=== PATIENT | female | born 1970 | race Caucasian/White ===

== ENCOUNTER 2018-11-15 21:52 | Inpatient (IN) | payer BC, OTHER ==
--- NOTE | 2018-11-16 00:35 | ED ---
Psych HPI - General Chief Complaint: Psychiatric Symptoms Stated Complaint: [employer] supervisor order-mental health Time Seen by Provider: 11/15/18 23:30 Source: patient, family, RN notes reviewed, old records reviewed Mode of arrival: ambulatory - History of Present Illness Initial Comments: 48-year-old female presents reports from today for EPS evaluation. She is petitioned by her . Patient has been making a erratic statements and talking to God. Patient reportedly said that the world is ending and is starting to scaring her family children. Patient reports that she's had no physical complaints at this time. Patient reports that her sister and her had the petition filed. No past mental health history. - Related Data Home Medications Medication Instructions Recorded Confirmed oxyCODONE HCL 10 mg PO TID PRN 11/15/18 11/15/18 Allergies Allergy/AdvReac Type Severity Reaction Status Date / Time No Known Allergies Allergy Verified 11/15/18 23:19 Review of Systems ROS Statement: Those systems with pertinent positive or pertinent negative responses have been documented in the HPI. ROS Other: All systems not noted in ROS Statement are negative. Past Medical History Past Medical History: No Reported History History of Any Multi-Drug Resistant Organisms: None Reported Past Surgical History: Section, Cholecystectomy Past Psychological History: Anxiety, Depression Smoking Status: Current every day smoker Past Alcohol Use History: Occasional Past Drug Use History: None Reported General Exam - General Exam Comments Initial Comments: 48-year-old female. Alert and oriented. No distress. Limitations: no limitations General appearance: alert, in no apparent distress Head exam: Present: atraumatic Eye exam: Present: normal appearance, PERRL, EOMI. Absent: scleral icterus, conjunctival injection, periorbital swelling ENT exam: Present: normal exam, mucous membranes moist Neck exam: Present: normal inspection. Absent: tenderness, meningismus, lymphadenopathy Respiratory exam: Present: normal lung sounds bilaterally. Absent: respiratory distress, wheezes, rales, rhonchi, stridor Cardiovascular Exam: Present: regular rate, normal rhythm, normal heart sounds. Absent: systolic murmur, diastolic murmur, rubs, gallop, clicks GI/Abdominal exam: Present: soft, normal bowel sounds. Absent: distended, tenderness, guarding, rebound, rigid Extremities exam: Present: normal inspection, full ROM, normal capillary refill. Absent: tenderness, pedal edema, joint swelling, calf tenderness Back exam: Present: normal inspection Neurological exam: Present: alert Psychiatric exam: Present: normal affect, normal mood Skin exam: Present: warm, dry, intact, normal color. Absent: rash Course Vital Signs 11/15/18 11/16/18 22:25 01:58 Temperature 98.7 F Pulse Rate 100 Respiratory 20 16 Rate Blood Pressure 134/93 O2 Sat by Pulse 97 Oximetry Medical Decision Making - Medical Decision Making [id number] female presents for his from today mental health evaluation. Petitioned by her . Patient is making her eratic statements talking to God. Stating that the world is ending and not wanting to live. Patient was evaluated by EPS. Patient will be clinically certification filled out by Dr. Ferro. Patient will be admitted at this time. - Lab Data Lab Results 11/16/18 Range/Units 01:27 Urine Opiates Screen Not Detected (NotDetected) Ur Oxycodone Screen Not Detected (NotDetected) Urine Methadone Screen Not Detected (NotDetected) Ur Propoxyphene Screen Not Detected (NotDetected) Ur Barbiturates Screen Not Detected (NotDetected) U Tricyclic Antidepress Not Detected (NotDetected) Ur Phencyclidine Scrn Not Detected (NotDetected) Ur Amphetamines Screen Not Detected (NotDetected) U Methamphetamines Scrn Not Detected (NotDetected) U Benzodiazepines Scrn Not Detected (NotDetected) Urine Cocaine Screen Not Detected (NotDetected) U Marijuana (THC) Screen Detected H (NotDetected) Disposition Clinical Impression: Psychosis Disposition: TRANSFER TO PSYCH HOSP/UNIT Condition: Stable Is patient prescribed a controlled substance at d/c from ED?: No Referrals: Nonstaff,Physician [Primary Care Provider] - 1-2 days Time of Disposition: 02:19
[2018-11-16 01:54] LABS: Amphetamine Screen,Urine Not Detected (NotDetected); Barbiturate Screen,Urine Not Detected (NotDetected); Benzodiazepines Screen,Urine Not Detected (NotDetected); Cocaine Screen,Urine Not Detected (NotDetected); Methadone Screen, Urine Not Detected (NotDetected); Opiate Screen,Urine Not Detected (NotDetected); Oxycodone Screen, Urine Not Detected (NotDetected); Phencyclidine Screen,Urine Not Detected (NotDetected); Tricyclic Antidepressant,Urine Not Detected (NotDetected); Urn Cannabinoid Scrn Detected (NotDetected)
[2018-11-16] MEDS ORDERED: ZIPRASIDONE 20 MG VIAL IM PRN (04:31)
[2018-11-16] MEDS ORDERED: MAGNESIUM HYDROXIDE 2,400 MG/10 ML CUP PO PRN (04:31)
[2018-11-16] MEDS ORDERED: ACETAMINOPHEN TAB 325 MG TAB PO PRN (04:31)
[2018-11-16] MEDS ORDERED: MAG HYDROX/AL HYDROX/SIMETH 30 ML CUP PO PRN (04:31)
[2018-11-16] MEDS: NICOTINE 14MG/24HR PATCH TRANSDERM SCH ×2 (09:48→12:05)
--- NOTE | 2018-11-16 12:17 | P.HP ---
Psychiatric H&P - . H&P Date: 11/16/18 History & Physical: Allergies Allergy/AdvReac Type Severity Reaction Status Date / Time No Known Allergies Allergy Verified 11/15/18 23:19 Vital Signs Temp 98.1 F 11/16/18 05:21 Pulse 70 11/16/18 05:21 Resp 16 11/16/18 05:21 BP 129/95 11/16/18 05:21 Pulse Ox 97 11/15/18 22:25 Intake & Output 11/15/18 11/16/18 11/16/18 18:59 06:59 18:59 Weight 57.153 kg Laboratory Last Values Urine Opiates Screen Not Detected (NotDetected) 11/16/18 01:27 Ur Oxycodone Screen Not Detected (NotDetected) 11/16/18 01:27 Urine Methadone Screen Not Detected (NotDetected) 11/16/18 01:27 Ur Propoxyphene Screen Not Detected (NotDetected) 11/16/18 01:27 Ur Barbiturates Screen Not Detected (NotDetected) 11/16/18 01:27 U Tricyclic Antidepress Not Detected (NotDetected) 11/16/18 01:27 Ur Phencyclidine Scrn Not Detected (NotDetected) 11/16/18 01:27 Ur Amphetamines Screen Not Detected (NotDetected) 11/16/18 01:27 U Methamphetamines Scrn Not Detected (NotDetected) 11/16/18 01:27 U Benzodiazepines Scrn Not Detected (NotDetected) 11/16/18 01:27 Urine Cocaine Screen Not Detected (NotDetected) 11/16/18 01:27 U Marijuana (THC) Screen Detected (NotDetected) H 11/16/18 01:27 Assessment and Plan Assessment: 48-year-old female presents reports from today for EPS evaluation. She is petitioned by her . Patient has been making a erratic statements and talking to God. Patient reportedly said that the world is ending and is starting to scaring her family children. Patient reports that she's had no physical complaints at this time. Patient reports that her sister and her had the petition filed. No past mental health history. - Related Data Home Medications Medication Instructions Recorded Confirmed oxyCODONE HCL 10 mg PO TID PRN 11/15/18 11/15/18 Allergies Allergy/AdvReac Type Severity Reaction Status Date / Time No Known Allergies Allergy Verified 11/15/18 23:19 Past Medical History Past Medical History: No Reported History History of Any Multi-Drug Resistant Organisms: None Reported Past Surgical History: Section, Cholecystectomy Past Psychological History: Anxiety, Depression Smoking Status: Current every day smoker Past Alcohol Use History: Occasional Past Drug Use History: None Reported Course Vital Signs 11/15/18 11/16/18 22:25 01:58 Temperature 98.7 F Pulse Rate 100 Respiratory 20 16 Rate Blood Pressure 134/93 O2 Sat by Pulse 97 Oximetry - Lab Data Lab Results 11/16/18 Range/Units 01:27 Urine Opiates Screen Not Detected (NotDetected) Ur Oxycodone Screen Not Detected (NotDetected) Urine Methadone Screen Not Detected (NotDetected) Ur Propoxyphene Screen Not Detected (NotDetected) Ur Barbiturates Screen Not Detected (NotDetected) U Tricyclic Antidepress Not Detected (NotDetected) Ur Phencyclidine Scrn Not Detected (NotDetected) Ur Amphetamines Screen Not Detected (NotDetected) U Methamphetamines Scrn Not Detected (NotDetected) U Benzodiazepines Scrn Not Detected (NotDetected) Urine Cocaine Screen Not Detected (NotDetected) U Marijuana (THC) Screen Detected H (NotDetected) Musculoskeletal Examination - Abnormal/Involuntary Movements: [none] Strength: [greater than antigravity (greater than/equal to 3/5) in all extremities] Muscle Tone: [no impairment, dystonia, hypertonic/myoclonus, rigidity, flaccid] Gait: [grossly normal limping] Station: [grossly normal Mental Status Examination - this is a 48-year-old female who looks older than stated age dressed casual and appears to have no insight into why she is in the hospital nor why she would need any psychiatric medications. Her explanation as she just stopped using them that she didn't want to use of any longer. Her original primary care physician and started her on antidepressants and antipsychotics and she had a new internal medicine doctor who is prescribing it for. She did not go back to internal medicine doctor and just decided to stop taking her medications. General Appearance: [well groomed, casual, appears older than stated age Speech/Language: [spontaneous monotone, expressive, soft] Attitude/Behavior: [ guarded, irritable, Mood: [ depressed, anxious, irritable, angry, fearful, hopelessness Affect: [ flat, incongruent, blunted constricted] Orientation: [time, person, place situation] Thought Content: [wnl, denies delusions, obsessions Risk Factors: [denies suicidal (ideations, plan), and/or Homicidal (ideations, plan) Perception: [wnl, denies hallucinations (auditory, visual, tactile) Thought Processes: [ concrete, circumstantial, tangential Concentration/Attention Span: [impaired] [Per observation and interview with the patient] Recent Memory: [wnl Remote Memory: [wnl, [past events, as related history] Intelligence: [ average] [based on history, based on vocabulary, syntax, grammar , and content] Judgement: [fair] [per patient's behavior/history of present illness] Insight: [fair] [understanding severity of illness/history of present illness] Admitting Diagnosis: [Major depressive disorder with psychotic features; marijuana use disorder moderate severe] Patient Strengths - Steady employment/financial stability: [x] Housing stability: [x] Able to vocalize needs: [x]Values and traditions: [x] Patient Limitations: [medication, non-compliance, pathological/unsupported environment, intellectual impairment, complicated medical illness, legal issues , lack of social supports] Initial Plan of Care: [Patient was admitted on an involuntary basis petition and clinical circumflex. I filled out second surgery for hospitalization and mental health court 3 [facility]. She lacks insight into why she is here and feels that she is doing well smoking her husbands medical marijuana and got has come back into her life. She had been taking Pristiq and antipsychotic and stop them abruptly 3 weeks ago. She's been living in the basement and she is fed up with her and 16-year-old daughter. She'll have 15 minute checks for safety and usual protocol for the unit. She'll be evaluated by medicine, psychiatry, nursing staff, social work and occupational therapy. She'll be expected to go to groups and participate in [facility] milieu therapeutic environment. She is resistant to any medications at this time and just wants her marijuana.] Estimated Length of Stay: [7-14] Initial Discharge Plan: [[place], [facility] [place], Prognosis: [ guarded] Justification for Inpatient Hospitalization - [ agitation, anxiety, depression resulting in significant loss of functioning.] [Dangerous to self with need for controlled environment.] [Emotional or behavioral conditions and complications requiring 24 hour medical and nursing care.] [Need for special drug therapy, or other therapeutic program requiring continuous hospitalization.] [Failure of social or occupational functioning.] [Inability to meet basic life and health needs.] [Legally mandated admission.] (1) Psychosis Current Visit: Yes Status: Acute Priority: Medium Code(s): F29 - UNSP PSYCHOSIS NOT DUE TO A SUBSTANCE OR KNOWN PHYSIOL COND SNOMED Code(s): 22788894 Time with Patient: Greater than 30
[2018-11-16] MEDS: DESVENLAFAXINE SUCCINATE 50 MG TAB.ER.24H PO SCH (21:18)
[2018-11-17] MEDS: LORazepam 0.5 MG TAB PO PRN ×2 (04:43→15:58)
[2018-11-17 09:06] LABS: Basophils # (A) 0.1 k/uL (0-0.2); Basophils % (A) 1 %; Eosinophils # (A) 0.1 k/uL (0-0.7); Eosinophils % (A) 2 %; HCT 54.2 % (34.0-46.0); HGB 17.3 gm/dL (11.4-16.0); Lymphocytes # (A) 2.7 k/uL (1.0-4.8); Lymphocytes % (A) 36 %; MCHC 31.8 g/dL (31.0-37.0); MCV 94.2 fL (80.0-100.0); Mean Platelet Volume 6.5; Monocytes # (A) 0.4 k/uL (0-1.0); Monocytes % (A) 5 %; Neutrophils # (A) 4.2 k/uL (1.3-7.7); Neutrophils % (A) 55 %; Platelet Count 249 k/uL (150-450); RBC 5.75 m/uL (3.80-5.40); RDW 13.1 % (11.5-15.5); WBC 7.6 k/uL (3.8-10.6)
[2018-11-17 09:11] LABS: ALT 53 U/L (9-52); AST 44 U/L (14-36); Albumin 4.2 g/dL (3.5-5.0); Alkaline Phosphatase 79 U/L (38-126); Anion Gap 9 mmol/L; Bilirubin, Delta 0.3 mg/dL (0.0-0.2); Bilirubin,Unconjugated 0.7 mg/dL (0.0-1.1); Blood Urea Nitrogen 9 mg/dL (7-17); Calcium 9.6 mg/dL (8.4-10.2); Carbon Dioxide 20 mmol/L (22-30); Chloride 111 mmol/L (98-107); Cholesterol 162 mg/dL (<200); Glucose 98 mg/dL (74-99); HDL Cholesterol 39 mg/dL (40-60); LDL Cholesterol,Calculated 98 mg/dL (0-99); Potassium 4.1 mmol/L (3.5-5.1); Sodium 140 mmol/L (137-145); Total Protein 7.3 g/dL (6.3-8.2); Triglycerides 125 mg/dL (<150)
[2018-11-17] MEDS: NICOTINE 14MG/24HR PATCH TRANSDERM SCH (09:36)
--- NOTE | 2018-11-17 11:52 | P.PN ---
Subjective Progress Note Date: 11/17/18 Principal diagnosis: Major depressive disorder with psychotic features; marijuana use disorder moderate severe this is a 48-year-old female who looks older than stated age dressed casual and appears to have no insight into why she is in the hospital nor why she would need any psychiatric medications. Her explanation as she just stopped using them that she didn't want to use of any longer. Her original primary care physician and started her on antidepressants and antipsychotics and she had a new internal medicine doctor who is prescribing it for. She did not go back to internal medicine doctor and just decided to stop taking her medications. She is denying medications today as well. She states she did not sleep well last night and has difficulty with taking Singulair. She wants no medication. Objective - Vital Signs Vital signs: Vital Signs Temp 97.7 F 11/17/18 04:43 Pulse 106 H 11/17/18 04:43 Resp 16 11/17/18 04:43 BP 137/89 11/17/18 04:43 Pulse Ox 97 11/15/18 22:25 - Labs CBC & Chem 7: 11/17/18 08:16 11/17/18 08:16 Labs: Abnormal Lab Results - Last 24 Hours (Table) 11/17/18 11/17/18 Range/Units 08:16 08:16 RBC 5.75 H (3.80-5.40) m/uL Hgb 17.3 H (11.4-16.0) gm/dL Hct 54.2 H (34.0-46.0) % Chloride 111 H (98-107) mmol/L Carbon Dioxide 20 L (22-30) mmol/L Delta Bilirubin 0.3 H (0.0-0.2) mg/dL AST 44 H (14-36) U/L ALT 53 H (9-52) U/L HDL Cholesterol 39 L (40-60) mg/dL Assessment and Plan Assessment: 48-year-old female presents reports from today for EPS evaluation. She is petitioned by her . Patient has been making a erratic statements and talking to God. Patient reportedly said that the world is ending and is starting to scaring her family children. Patient reports that she's had no physical complaints at this time. Patient reports that her sister and her had the petition filed. No past mental health history. - Related Data Home Medications Medication Instructions Recorded Confirmed oxyCODONE HCL 10 mg PO TID PRN 11/15/18 11/15/18 Allergies Allergy/AdvReac Type Severity Reaction Status Date / Time No Known Allergies Allergy Verified 11/15/18 23:19 Past Medical History Past Medical History: No Reported History History of Any Multi-Drug Resistant Organisms: None Reported Past Surgical History: Section, Cholecystectomy Past Psychological History: Anxiety, Depression Smoking Status: Current every day smoker Past Alcohol Use History: Occasional Past Drug Use History: None Reported Course Vital Signs 11/15/18 11/16/18 22:25 01:58 Temperature 98.7 F Pulse Rate 100 Respiratory 20 16 Rate Blood Pressure 134/93 O2 Sat by Pulse 97 Oximetry - Lab Data Lab Results 11/16/18 Range/Units 01:27 Urine Opiates Screen Not Detected (NotDetected) Ur Oxycodone Screen Not Detected (NotDetected) Urine Methadone Screen Not Detected (NotDetected) Ur Propoxyphene Screen Not Detected (NotDetected) Ur Barbiturates Screen Not Detected (NotDetected) U Tricyclic Antidepress Not Detected (NotDetected) Ur Phencyclidine Scrn Not Detected (NotDetected) Ur Amphetamines Screen Not Detected (NotDetected) U Methamphetamines Scrn Not Detected (NotDetected) U Benzodiazepines Scrn Not Detected (NotDetected) Urine Cocaine Screen Not Detected (NotDetected) U Marijuana (THC) Screen Detected H (NotDetected) Musculoskeletal Examination - Abnormal/Involuntary Movements: [none] Strength: [greater than antigravity (greater than/equal to 3/5) in all extremities] Muscle Tone: [no impairment, dystonia, hypertonic/myoclonus, rigidity, flaccid] Gait: [grossly normal limping] Station: [grossly normal Mental Status Examination - this is a 48-year-old female who looks older than stated age dressed casual and appears to have no insight into why she is in the hospital nor why she would need any psychiatric medications. Her explanation as she just stopped using them that she didn't want to use of any longer. Her original primary care physician and started her on antidepressants and antipsychotics and she had a new internal medicine doctor who is prescribing it for. She did not go back to internal medicine doctor and just decided to stop taking her medications. General Appearance: [well groomed, casual, appears older than stated age Speech/Language: [spontaneous monotone, expressive, soft] Attitude/Behavior: [ guarded, irritable, Mood: [ depressed, anxious, irritable, angry, fearful, hopelessness Affect: [ flat, incongruent, blunted constricted] Orientation: [time, person, place situation] Thought Content: [wnl, denies delusions, obsessions Risk Factors: [denies suicidal (ideations, plan), and/or Homicidal (ideations, plan) Perception: [wnl, denies hallucinations (auditory, visual, tactile) Thought Processes: [ concrete, circumstantial, tangential Concentration/Attention Span: [impaired] [Per observation and interview with the patient] Recent Memory: [wnl Remote Memory: [wnl, [past events, as related history] Intelligence: [ average] [based on history, based on vocabulary, syntax, grammar , and content] Judgement: [fair] [per patient's behavior/history of present illness] Insight: [fair] [understanding severity of illness/history of present illness] Admitting Diagnosis: [Major depressive disorder with psychotic features; marijuana use disorder moderate severe] Patient Strengths - Steady employment/financial stability: [x] Housing stability: [x] Able to vocalize needs: [x]Values and traditions: [x] Patient Limitations: [medication, non-compliance, pathological/unsupported environment, intellectual impairment, complicated medical illness, legal issues , lack of social supports] Initial Plan of Care: [Patient was admitted on an involuntary basis petition and clinical circumflex. I filled out second surgery for hospitalization and mental health court 3 [facility]. She lacks insight into why she is here and feels that she is doing well smoking her husbands medical marijuana and got has come back into her life. She had been taking Pristiq and antipsychotic and stop them abruptly 3 weeks ago. She's been living in the basement and she is fed up with her and 16-year-old daughter. She'll have 15 minute checks for safety and usual protocol for the unit. She'll be evaluated by medicine, psychiatry, nursing staff, social work and occupational therapy. She'll be expected to go to groups and participate in [facility] therapeutic environment. She is resistant to any medications at this time and just wants her marijuana.] Estimated Length of Stay: [7-14] Initial Discharge Plan: [home, [facility], Prognosis: [ guarded] Justification for Inpatient Hospitalization - [ agitation, anxiety, depression resulting in significant loss of functioning.] [Dangerous to self with need for controlled environment.] [Emotional or behavioral conditions and complications requiring 24 hour medical and nursing care.] [Need for special drug therapy, or other therapeutic program requiring continuous hospitalization.] [Failure of social or occupational functioning.] [Inability to meet basic life and health needs.] [Legally mandated admission.] (1) Psychosis Current Visit: Yes Status: Acute Priority: Medium Code(s): F29 - UNSP PSYCHOSIS NOT DUE TO A SUBSTANCE OR KNOWN PHYSIOL COND SNOMED Code(s): 77570198 Time with Patient: Less than 30
[2018-11-17] MEDS: NAPROXEN 250 MG TAB PO PRN (15:58)
[2018-11-17] MEDS: DESVENLAFAXINE SUCCINATE 50 MG TAB.ER.24H PO SCH (20:19)
[2018-11-18] MEDS: NICOTINE 14MG/24HR PATCH TRANSDERM SCH (07:44)
--- NOTE | 2018-11-18 11:58 | P.PN ---
Progress Note - Text Interval history: The patient is found in the hallway she follows me to an interview room. She indicates that she was wrongly admitted to the mental health unit. She feels it family set her up. She reports that she was only talking about God and this alarmed family members. She states because she stopped catering to them and doing things for them they became upset. Staff report that the patient has been psychotic and agitated. For the most part she had been staying in her room and not participating in group. It's reported that she slept poorly. She's indicated that she does not wish to take psychotropic medication she quit her first 3 weeks ago and is decided to use marijuana instead. Mental status exam: The patient is alert she seated calmly in the chair she is dressed in her own clothing she has a disheveled appearance. She is denying all symptoms across the board. She is endorsing no auditory or visual hallucinations or any specific delusions. She appears to be experiencing delusional thought however. She demonstrates no involuntary repetitive movements. Insight and judgment are impaired. She demonstrated no verbal or physical aggressiveness during our session. Affect was constricted and then suddenly became tearful twice and that she reconstituted. She became tearful the first time she began discussing her primary care physician she states is the first physician she is ever trusted. Plan: The patient continues to display evidence of affect lability and psychosis. She requires continued evaluation and treatment. She is here involuntarily. Vital signs reviewed. She is encouraged to participate in groups. We will continue monitoring her for safety.
[2018-11-18 12:05] LABS: Hemoglobin A1C 5.9 % (4.0-6.0)
[2018-11-18] MEDS: DESVENLAFAXINE SUCCINATE 50 MG TAB.ER.24H PO SCH (21:48)
[2018-11-19] MEDS: NICOTINE 14MG/24HR PATCH TRANSDERM SCH (09:02)
--- NOTE | 2018-11-19 11:39 | P.PN ---
Progress Note - Text Interval history: The patient is found in her room she follows me to an interview room. She indicates her mood is okay she is hoping to be discharged tonight. She continues to lack insight as to why she was admitted. She describes paranoid persecutory thoughts regarding the admission process. She states that she continues to hear the voice of God directing her. She continues to state she does not wish to have any medication prescribed and states "I know you have already made up your mind". Mental status exam: The patient is alert she has a disheveled appearance she is dressed in her own clothing. Eye contact is intermittent. Speech is fluent she is responsive to questions asked. She is seated with her arms crossed. Affect is constricted. She is reporting no suicidal or homicidal thoughts. She is endorsing an auditory hallucination in the form of God's voice. It appears she takes direction from this voice. She demonstrates no verbal or physical aggressiveness. Insight and judgment are impaired. Plan: The patient is scheduled to have a deferral conference sometime this week. She is refusing psychotropic medication at this time. She appears to have continued symptoms of psychosis that have caused dysfunction prior to this admission. She requires continued psychiatric hospitalization. Vital signs reviewed.
[2018-11-19] MEDS: NAPROXEN 250 MG TAB PO PRN (22:21)
[2018-11-19] MEDS: DESVENLAFAXINE SUCCINATE 50 MG TAB.ER.24H PO SCH (22:22)
[2018-11-20] MEDS: NICOTINE 14MG/24HR PATCH TRANSDERM SCH (09:13)
--- NOTE | 2018-11-20 11:52 | P.PN ---
Progress Note - Text Interval history: The patient is found in group she follows me to an interview room. She states her mood is okay. She continues to not want any medication. She continues to describe the situation prior to her admission. She states her family became alarmed because she stopped doing everything for them. She tries to describe her thoughts but they are disorganized and difficult to follow at times. Staff report no behavioral issues. She continues to verbalize she receives messages from God but would not be specific with those today. Mental status exam: The patient is alert she has a disheveled appearance she is dressed in her own clothing. Eye contact is intermittent. Speech is fluent she is verbose nonpressured. She demonstrates some disorganization of her thought. She describes some paranoid and persecutory thoughts. Insight and judgment are impaired. She is reporting no suicidal or homicidal thoughts. She demonstrates no verbal or physical aggressiveness she demonstrates no involuntary repetitive movements. Plan: The patient continues to refuse medication she continues to demonstrate evidence of psychosis. We are awaiting her deferral conference. We will continue to monitor her for safety and encourage participation in the milieu. Reality orientation as offered.
[2018-11-20] MEDS: DESVENLAFAXINE SUCCINATE 50 MG TAB.ER.24H PO SCH (20:50)
[2018-11-21] MEDS: NICOTINE 14MG/24HR PATCH TRANSDERM SCH (09:12)
--- NOTE | 2018-11-21 10:18 | P.PN ---
Progress Note - Text Interval history: The patient is found in group she follows me to an interview room. She continues to refuse psychotropic medication. We discussed the possibility of starting an antipsychotic and she refuses. She feels that is unnecessary. She indicates that she has spoken with her sister and via phone. She reports that she slept last night appetite is stable. She states that she doesn't mind being here now as she is helping others. Mental status exam: The patient is alert she's cooperative and pleasant. Eye contact is appropriate speech is fluent spontaneous nonpressured. She continues to harbor delusional beliefs but does not speak of them spontaneously today. She reports no suicidal or homicidal ideation. She minimizes symptoms prior to being admitted to the hospital. Insight and judgment limited. She demonstrates no verbal or physical aggressiveness. She is oriented to the correct date but in correctly names the day of the week is Sunday. She demonstrates no involuntary repetitive movements. Plan: The patient continues to have delusional thoughts she refuses antipsychotic medication. We are awaiting her deferral conference. We will monitor her for safety. Social work will be asked to contact family to get their opinion of her current status. Vital signs reviewed.
[2018-11-21] MEDS: DESVENLAFAXINE SUCCINATE 50 MG TAB.ER.24H PO SCH (21:35)
[2018-11-21] MEDS: LORazepam 0.5 MG TAB PO PRN (21:37)
[2018-11-22] MEDS: NICOTINE 14MG/24HR PATCH TRANSDERM SCH (07:59)
--- NOTE | 2018-11-22 10:21 | P.PN ---
Progress Note - Text Interval history: The patient is found in the [facility]. She reports her mood is good. She participated in a support meeting involving her facilitated by social work. I was able to speak with social work after that meeting. The patient's continues to assert the patient remains just as psychotic. He informs us that the patient has lived in the basement for 18 days as directed by God. He had stated she was participating in other bizarre behaviors as she was following a command from a voice she felt was God. The patient agrees that she did live in the basement for several weeks and was instructed to do so by an auditory hallucination. She states God directs her to do several things. She continues to feel that she does not require a psychotropic medication and accuses me of putting symptoms on her or feeling in the blanks incorrectly. Mental status exam: The patient is alert she's dresser own clothing she is mildly disheveled hygiene is adequate. She reports her mood is fine. She indicates she would like to be discharged. She continues to endorse auditory hallucinations in the form of God's voice. These voices provide direction which she follows. She has impaired insight into her behaviors. She reports no suicidal or homicidal thoughts. She demonstrates frustration and brief irritability when discussing the auditory hallucination. She demonstrates no verbal or physical aggressiveness. She demonstrates no abnormal involuntary movement. Plan: The patient is refusing psychotropic medication. We are awaiting her court date. We will need to initiate an antipsychotic medication when she is agreeable for we have a court order for treatment. We will monitor her for safety and encourage participation in the milieu. Vital signs reviewed.
[2018-11-22] MEDS: LORazepam 0.5 MG TAB PO PRN (17:40)
[2018-11-22] MEDS: DESVENLAFAXINE SUCCINATE 50 MG TAB.ER.24H PO SCH (20:55)
[2018-11-23] MEDS: LORazepam 0.5 MG TAB PO PRN ×2 (02:20→23:59)
[2018-11-23] MEDS: NICOTINE 14MG/24HR PATCH TRANSDERM SCH (09:18)
[2018-11-23] MEDS ORDERED: LORazepam 0.5 MG TAB ONE (16:00)
[2018-11-23] MEDS: DESVENLAFAXINE SUCCINATE 50 MG TAB.ER.24H PO SCH (21:26)
[2018-11-24] MEDS: LORazepam 0.5 MG TAB PO PRN ×2 (08:11→20:08)
[2018-11-24] MEDS: NICOTINE 14MG/24HR PATCH TRANSDERM SCH (08:12)
[2018-11-24 17:00] LABS: Appearance,Urine Clear (Clear); Bilirubin,Urine Negative (Negative); Blood,Urine Negative (Negative); Color,Urine Yellow; Glucose,Urine (UA) Negative (Negative); Ketones,Urine Negative (Negative); Leukocyte Esterase,Urine Negative (Negative); Nitrite,Urine Negative (Negative); Protein,Urine Negative (Negative); Specific Gravity,Urine 1.014 (1.001-1.035); Urobilinogen,Urine <2.0 mg/dL (<2.0)
--- NOTE | 2018-11-24 17:05 | P.PN ---
Progress Note - Text Progress Note Date: 11/24/18 IDENTIFICATION DATA: 48-year-old female petitioned by her for making a erratic statements world is ending and talking to God. INTERVAL HISTORY: Patient reports she doesnt take any medications except for ativan which helps her to sleep. She states there is no ko for her to take any psychotropic medications. She claims to have been prescribed ativan and xanax to help her stay calm. She states over the years she had only taken 15 of them. She reports feeling safe to go back home and denies most of the symptoms. MENTAL STATUS EXAMINATION: Patient appeared in fair grooming and hygiene. Her speech is linear and goal directed. Her mood is reported as good and affect appropriate. Denies active suicidal or homicidal ideations. Denies current auditory or visual hallucinations. Denies paranoia. Insight and judgment are improving ASSESSMENT AND PLAN: Refusing psychotropic medications except for ativan. Monitor for safety and symptoms
[2018-11-24 17:11] LABS: Amphetamine Screen,Urine Not Detected (NotDetected); Barbiturate Screen,Urine Not Detected (NotDetected); Benzodiazepines Screen,Urine Detected (NotDetected); Cocaine Screen,Urine Not Detected (NotDetected); Methadone Screen, Urine Not Detected (NotDetected); Opiate Screen,Urine Not Detected (NotDetected); Oxycodone Screen, Urine Not Detected (NotDetected); Phencyclidine Screen,Urine Not Detected (NotDetected); Tricyclic Antidepressant,Urine Not Detected (NotDetected); Urn Cannabinoid Scrn Detected (NotDetected)
[2018-11-24] MEDS: DESVENLAFAXINE SUCCINATE 50 MG TAB.ER.24H PO SCH (20:25)
[2018-11-25] MEDS: NICOTINE 14MG/24HR PATCH TRANSDERM SCH ×2 (08:49→17:59)
--- NOTE | 2018-11-25 09:52 | P.PN ---
Progress Note - Text Interval history: The patient's was found in the hallway she follows me to an interview room. She continues to refuse psychotropic medication. Her court date is scheduled for November 27. She states that she intends to never take medication whether she is ordered to or not. She indicates she is eating she showering. She would like to be discharged. In terms of evaluating her for current symptoms she denies having any. Obviously she is underreporting to facilitate a discharge. Mental status exam: The patient is alert she seated in her chair with her arms and legs crossed she is calm but guarded. She has a mildly disheveled appearance hygiene is adequate. She is dressed in pajama bottoms and a sweatshirt. Eye contact is appropriate speech is fluent spontaneous nonpressured. She continues to feel that she was placed here inappropriately. She continues to assert that she has no delusional thinking and requires no medication she no longer is speaking of auditory hallucinations. Again she is trying to facilitate a discharge by underreporting symptoms. Insight and judgment are impaired. She demonstrates no verbal or physical aggressiveness. She is oriented to person place and date. Plan: The patient will continue being observed for safety she is encouraged to participate in the milieu. She is resolved at this point in not taking medication. Vital signs reviewed.
[2018-11-25] MEDS: LORazepam 0.5 MG TAB PO PRN ×2 (11:07→20:16)
[2018-11-25] MEDS: DESVENLAFAXINE SUCCINATE 50 MG TAB.ER.24H PO SCH (20:17)
[2018-11-26] MEDS: LORazepam 0.5 MG TAB PO PRN ×3 (04:54→22:24)
[2018-11-26] MEDS: NICOTINE 14MG/24HR PATCH TRANSDERM SCH (08:57)
--- NOTE | 2018-11-26 11:02 | P.PN ---
Progress Note - Text Interval history: The patient is found in the hallway she follows me to an interview room. She indicates her mood is fine. She is looking forward to her court date tomorrow. She is hoping that she is released from the hospital after that hearing. Again we discussed the option of using a psychotropic medication to stabilize mood and to assist her with objective thinking however she continues to decline and states she does not need the medication. She indicates she does needs to smoke marijuana. Staff report the patient has been attending groups and has demonstrated no agitated behavior. Mental status exam: The patient is alert she is dressed in her own clothing she' s cooperative and directable. She indicates her mood is fine but frustrated she still in the hospital. She reports no suicidal or homicidal thoughts she is reporting no symptoms at this time. It is likely she continues to experience auditory hallucinations as she has previously described them. She demonstrates no verbal or physical aggressiveness. She is oriented to person place and date. Affect is bland. She likely continues to experience the same delusional thoughts. Plan: The patient will continue being monitored for safety. She continues to refuse a trial of an antipsychotic medication. We will encourage her continued participation in groups. She has a court hearing scheduled tomorrow regarding her treatment. Vital signs reviewed.
[2018-11-27] MEDS: LORazepam 0.5 MG TAB PO PRN ×3 (06:20→21:10)
[2018-11-27] MEDS: NICOTINE 14MG/24HR PATCH TRANSDERM SCH (08:51)
--- NOTE | 2018-11-27 09:58 | P.PN ---
Progress Note - Text Interval history: The patient is found in group she follows me to an interview room. She is aware that she has her court hearing today. She asks a few questions regarding that procedure in those questions were addressed. She states that she slept about 5 hours last evening staff reported she slept 5 hours. Appetite is been stable. She did shower this morning. She continues to disagree with this hospitalization and feels that she should be discharged without any use of medication. Mental status exam: The patient is alert she is dressed in her own clothing she has just showered and has her hair wrapped in a towel. Eye contact is appropriate. She denies having any symptoms as she continues to try to facilitate a discharge. She reports no suicidal or homicidal thoughts. She is demonstrating no verbal or physical aggressiveness. Affect is constricted. She continues to lack insight into her presenting symptoms. She reports that she doesn't feel as well today because she is feeding off of the negative energy of others. Plan: The patient continues to refuse psychotropic medication. She does have her court hearing scheduled for today. We will monitor her for safety and encourage participation in the milieu. We will await the outcome of her court hearing. Vital signs reviewed.
[2018-11-28] MEDS: NICOTINE 14MG/24HR PATCH TRANSDERM SCH (08:42)
[2018-11-28] MEDS: LORazepam 0.5 MG TAB PO PRN ×2 (08:43→18:34)
--- NOTE | 2018-11-28 10:09 | P.PN ---
Progress Note - Text Interval history: The patient is found in the hallway she follows me to an interview room. She states her mood is fine. She had court yesterday and opted for an independent medical exam. She had questions about that process and we address those. She continues to feel that she does not require medication. She indicates she sleeping at night she is bathing she is eating. She has been attending groups. She states that there is nothing wrong with her. She reports that her had a reaction because she decided she had enough and was not going to be controlled by him. Mental status exam: The patient is alert she is dressed in her own clothing eye contact is appropriate. Speech is fluent and spontaneous nonpressured. Several times she states that I'm not able to form an opinion because I do not know her. She describes her is being overly controlling. She states that she feels good helping other patients here. She reports being in one of the rooms here on the mental health unit and feeling bad energy. She demonstrates no verbal or physical aggressiveness. She is a directable. Plan: The patient is now awaiting an independent medical exam. We will monitor her for safety and encourage participation in the milieu. Vital signs reviewed.
[2018-11-29] MEDS: LORazepam 0.5 MG TAB PO PRN ×2 (06:31→15:44)
[2018-11-29] MEDS: NICOTINE 14MG/24HR PATCH TRANSDERM SCH (08:31)
--- NOTE | 2018-11-29 11:06 | P.PN ---
Progress Note - Text Interval history: The patient is found in group she follows me to an interview room. She reports she is doing fine. He continues to want to be discharged. At length we discussed the presenting symptoms. She continues to assert that her reacted the way he did because she was making decisions that were giving him less control. hothouse worker did speak with the patient's sister who described concerns about the patient prior to admission. During treatment team we discussed that the patient has been meeting her activities of daily living she is demonstrating no agitated behavior. She is able to participate in a conversation appropriately. We discussed the possibility of allowing her to defer without use of medication but committing to outpatient therapy on a weekly basis. Mental status exam: The patient is alert she stressor own clothing hygiene grooming are good. Eye contact is appropriate speech is fluent spontaneous nonpressured. She maintains a constricted affect. She is reporting no auditory or visual hallucinations she is endorsing no specific delusions at this time although they may persist area she demonstrates no verbal or physical aggressiveness. She is oriented to person place and date. She demonstrates future oriented thinking. She is able to register 3 words she was able to recall 2 of them spontaneously after delay of 4 minutes and the third word with a multiple choice cue. She was able to name 5 major cities in the [place]. She was able to name the months of the year backwards. She provided abstract answers to similarity questions. She was able to name 3 objects. Plan: The patient's will be monitored for safety. She is encouraged to continue participating in the milieu. She was given the option of deferring so long as she agrees to weekly outpatient counseling. At this point I am not requiring use of the medication. She will give this consideration and contact her associate attorney accordingly if she decides to defer. Social work will discuss this with the patient's spouse. We will continue to monitor her clinical status. Vital signs reviewed.
[2018-11-29 13:02] VITALS: BMI 21.7
[2018-11-30] MEDS: LORazepam 0.5 MG TAB PO PRN ×3 (00:21→16:34)
[2018-11-30] MEDS: NICOTINE 14MG/24HR PATCH TRANSDERM SCH (07:56)
--- NOTE | 2018-11-30 09:07 | P.PN ---
Progress Note - Text Interval history: The patient is found in the hallway she follows me to an interview room. She indicates her mood is fine. She states that she did speak with her [place] attorney and her united states attorney will come Sunday morning and they will discuss a deferral. She is agreeable to working with an outpatient therapist on a weekly basis as part of the deferral agreement. Social work did discuss this with the patient's sister those notes were reviewed. 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 She indicates she is looking forward to being discharged. She denies having any suicidal or homicidal thoughts. She is endorsing no auditory or visual hallucinations at this time. Affect is constricted. She demonstrates no verbal or physical aggressiveness. She is observed on the mental health unit maintain appropriate behavior and attending groups. Insight and judgment improving. Plan: We will continue to monitor her for safety. We'll continue to assess her status daily. We are planning to discharge her Sunday after she signs a deferral agreement. Vital signs reviewed.
[2018-12-01] MEDS: LORazepam 0.5 MG TAB PO PRN ×3 (03:01→20:57)
[2018-12-01 07:24] VITALS: RESP 16
[2018-12-01] MEDS: NICOTINE 14MG/24HR PATCH TRANSDERM SCH (09:01)
--- NOTE | 2018-12-01 13:03 | P.PN ---
Progress Note - Text Interval history: The patient is found in the hallway she follows me to an interview room. She indicates her mood is improving. She did have a friend visit last evening which was supportive. We discussed the plan of discharging her following her deferral conference. Mental status exam: The patient is alert she presents with adequate hygiene grooming eye contact is appropriate. Speech is fluent spontaneous nonpressured. She reports no suicidal or homicidal ideation intent or plan. She is reporting no auditory or visual hallucinations or any specific delusions. Again she may have some delusional thoughts in residual form but they do not impact her overall function at this time. She is attending to her activities of daily living. She demonstrates no verbal or physical aggressiveness. She demonstrates no tangential thinking loose associations or flight of ideas. Plan: The patient is scheduled to be discharged tomorrow following her deferral conference. We will continue to monitor her for safety and encourage participation in the milieu.
[2018-12-02 07:02] VITALS: BP 120/81; PULSE 74; TEMP 97.8
[2018-12-02] MEDS: NICOTINE 14MG/24HR PATCH TRANSDERM SCH (07:40)
[2018-12-02] MEDS: LORazepam 0.5 MG TAB PO PRN (07:41)
--- NOTE | 2018-12-02 10:25 | P.DS ---
Providers Date of admission: 11/16/18 04:09 Expected date of discharge: 12/02/18 Attending physician: Silvio Moctezuma Consults: 11/16/18 04:31 Consult Physician Routine Consulting Provider: Criss Physician Consult Reason/Comments: H & P medical follow up Do you want consulting provider notified?: Already Contacted Primary care physician: Physician Nonstaff - Discharge Diagnosis(es) (1) Psychosis Current Visit: Yes Status: Acute Priority: High Hospital Course: Brief summary of admission note: This patient is a 48-year-old female who was admitted to the mental health unit on a petition completed by her indicating symptoms of psychosis. It was reported that she was making erratic statements and talking to God. She described that the world was ending and this was disturbing to her family. Her family stated the patient had suddenly moved into their basement and made several changes at home which were uncharacteristic. The patient was initially assessed by Dr. Bedoya please refer to his psychiatric evaluation for full detail. Summary of hospital course: The patient was admitted to the hospital in voluntarily. A second clinical certificate was completed. She was admitted on 11/16/2018 I assumed her care on 11/18/2018. The patient lacked insight into her presenting symptoms and refused any psychotropic medication. She was previously treated with an antidepressant and refused even that. Obviously we felt that an antipsychotic was needed initially. She was seen by internal medicine for routine history and physical exam. She is selectively attended groups. At her deferral conference she elected to go to a full court hearing. At her full court hearing she requested an independent medical exam. During the course of the hospitalization the patient was able to demonstrate eventually that she could maintain her activities of daily living. She stopped discussing her delusional thoughts spontaneously. She demonstrated no verbal or physical aggressiveness. As the hospitalization progressed she was able to engage in rational conversation. It was determined that she no longer met the standard for continued involuntary commitment. They're very well may be residual delusional thoughts present but she reports no suicidal thoughts homicidal thoughts. She is able to attend to her hygiene she is eating sleep is adequate. She is now directable and freely engages in conversation. She has been able to discuss several stressors that were occurring prior to the hospitalization. She described concern that her was overcontrolling. It appears that she had recently gone off of opiate analgesics suddenly prior to the admission. It was determined that if the patient agreed to outpatient counseling as part of a deferral agreement we would discharge her. In that way she could continue to be monitored and if need be sent back to the hospital if acutely symptomatic. The patient states that her real estate associate attorney will be coming at 11: 30 this morning for her to sign a deferral ultimately plan to discharge her afterwards. Her family has been advised of our decision. Mental status exam: The patient is alert she is dressed in her own clothing hygiene grooming adequate. Speech is fluent spontaneous nonpressured. She denies having any suicidal or homicidal ideation intent or plan. She is reporting no auditory or visual hallucinations or any specific delusions. It is possible that she is underreporting symptoms however they do not appear to be causing any significant dysfunction at this time if they are present. She demonstrates no verbal or physical aggressiveness. She demonstrates future oriented thinking. Insight and judgment have improved. She is oriented to person place and date. Impressions 1. Psychosis unspecified, rule out history of major depressive disorder Plan: The patient will be discharged mental health unit today. Social work will arrange for outpatient follow-up. Prior to discharge she will sign a deferral agreement for outpatient counseling. There is no imminent safety risk at this time she is appropriate for transition to outpatient care. She is instructed to present to the hospital for any acute safety concerns. She was offered a prescription for the nicotine patch she states that she refuses that and will not use the nicotine patch upon discharge. Patient Condition at Discharge: Stable Plan - Discharge Summary New Discharge Prescriptions: Discontinued oxyCODONE HCL 10 mg PO TID PRN PRN Reason: Pain Follow up Appointment(s)/Referral(s): Nonstaff,Physician [Primary Care Provider] - 1-2 days Patient Instructions/Handouts: How to Stop Smoking (GEN) Activity/Diet/Wound Care/Special Instructions: Keep your follow up appointments as scheduled. Continue your medications as prescribed. When you need refills on your medications contact your physician or outpatient psychiatrist. Refrain from using street drugs or alcohol. No access to guns or weapons. If symptoms return or get worse call the crisis line at or go to nearest emergency room for evaluation.
== END 2018-12-02 13:50 | disposition home or self-care (01) | DRG 885 ==
LOC: EC 21:52 → 3MHU 11-16 04:09
PROVIDERS: ADMIT Psychiatry & Neurology Psychiatry; ATTEND Psychiatry & Neurology Psychiatry
DX: F32.3 Major depressive disorder, single episode, severe with psychotic features (principal); F41.9 Anxiety disorder, unspecified; F17.210 Nicotine dependence, cigarettes, uncomplicated; F12.10 Cannabis abuse, uncomplicated; T43.96XA Underdosing of unspecified psychotropic drug, initial encounter; Z91.128 Patient's intentional underdosing of medication regimen for other reason
CPT/HCPCS: 80053; 80061; 80306; 81003; 82075; 82248; 83036; 84443; 85025; 99285